=== PATIENT | male | born 1935 | race Caucasian/White ===

== ENCOUNTER 2016-12-20 08:15 | Outpatient (RCR) | payer MEDICARE ==
--- NOTE | 2016-11-29 15:15 | PT/OT/ST INITIAL EVALUATION ---
Department of Health and Human Services Form Approved [facility] Care Financing Administration OMB No. [id number] PLAN OF CARE/ASSESSMENT FOR OUTPATIENT REHABILITATION (Complete for Initial Claims Only) 1. LAST NAME [place] FIRST NAME Roberth MURRAY V 2. ACC # [id number] 3. [facility] [id number] 4. PROVIDER NO. [id number] 5. TYPE: X PT 6. PRIOR THERAPY (Same condition) None 7. PRIMARY DX Lumbar stenosis with neurogenic claudication 8. SECONDARY DX Lower extremity weakness and decreased balance 9. ONSET DATE Several months ago 10. REFERRAL DATE 11/24/2016 11. SOC. DATE/TIME 11/29/2016 @ 08:00 a.m. 12. PRIOR LEVEL OF FUNCTION; PERTINENT HISTORY (Prior therapy results, reason for referral.) S: The patient was referred to physical therapy by Dr. Vivek Sellers with [facility]. The patient's diagnosis was lumbar stenosis with neurogenic claudication. The patient reports that he has been experiencing weakness and decreased strength at his legs for several months. The patient states that he is unable to walk without a cane. The patient notes that he is very unsteady when it is dark out or when the lights are off. He feels very wobbly and unstable on his feet. He notes that his legs get tired quickly. The patient reports that he does not think he can get up from the floor if he had fallen. The patient lives in his own home and still drives. He does undergo dialysis 3 times a week, Monday, Monday, and Monday in [place]. Current pain rating is 0/10. Past medical history includes lumbar stenosis, fusion at his cervical spine one year ago, pacemaker one year ago, peripheral neuropathy right greater than left, bilateral total hip replacement, and bilateral total knee replacement. The patient also has end stage kidney disease. The patient's goal for therapy is to strengthen so he is able to walk better. 13. INITIAL ASSESSMENT/SAFETY PRECAUTIONS/MEDICAL COMPLICATIONS (Level of function at start of care. Be specific, use objective measures, list problems.) O: APPEARANCE: The patient is a 81-year-old male. He ambulates with a small base quad cane. That he states he has been using for approximately 3 months. In walking, the patient demonstrates a left Trendelenburg gait pattern. He demonstrates forward head posture and rounded shoulders. The patient has an ataxic gait pattern when walking. RANGE OF MOTION/FLEXIBILITY: Cervical range of motion normal limits, except for extension which is only 50%. Shoulder range of motion: Right shoulder flexion and abduction limited to 70%. Trunk range of motion: Flexion 60%, extension to neutral, bilateral side bending normal limits. Lower extremity range of motion normal limits. STRENGTH: Right shoulder flexion, abduction, and external rotation were 4-/5 manual muscle test. Left shoulder strength were 5/5 manual muscle test. Lower extremity strength: bilateral hip flexion 4/5 manual muscle test, knee extension and flexion 4+/5 manual muscle test, hip abduction bilaterally 4/5 manual muscle test, and ankle dorsiflexion 4-/5 manual muscle test on the right and 4/5 manual muscle test on the left. FUNCTIONAL ACTIVITIES: The patient is unable to perform a heel raise and has difficulty performing toe raises right greater than left. TINETTI BALANCE ASSESSMENT TOOL: The patient scored a 17/28 which puts him at a high risk for falls. TODAY'S TREATMENT: Included initial evaluation followed by therapeutic exercise for stabilization and strengthening. The patient also performed upper level gait and balance activities. 14. INITIAL POC: (Specify procedures, modalities, short and long-term goals) A: The patient demonstrates lower extremity weakness and decreased balanced and stability. PROGNOSIS: The patient is a good candidate for physical therapy to help improve strength and balance. GOALS: 1. The patient to be compliant with home exercise program in 2 weeks. 2. The patient to demonstrate half a muscle grade improvement in lower extremity strength in 4 weeks. 3. The patient to demonstrate a 5 point improvement in Tinetti balance assessment score in 6 weeks. 4. The patient to report that he feels safer when walking and performing activities at home in 6 weeks. PLAN: The patient will be seen 2 times a week over the next 6 weeks. Plan on progressing patient with general strengthening, stabilization, and balance activities. Treatment may also gentle pelvic traction and ultrasound. 15. FUNCTIONAL LEVEL (End of claim period) 16. PHYSICIAN SIGNATURE ? ON FILE OR ENTER HERE: 17. DATE: I certify the need for these services furnished under this plan of care and if for partial hospitalization. 18. CERTIFICATION FROM THROUGH FORM [id number]
[~2016-12-20 08:15] MED LIST: ASPI-586 PO; DLT240CCR PO; INSU100V32 SQ; LISI1TAB8 PO; [UNRECOGNIZED DRUG - CODE] PO
== END 2017-01-31 12:31 | disposition home or self-care (01) ==
LOC: PT 08:15
PROVIDERS: ATTEND Neurological Surgery
DX: M48.06 Spinal stenosis, lumbar region (principal); I73.9 Peripheral vascular disease, unspecified; R29.818 Other symptoms and signs involving the nervous system
CPT/HCPCS: 97110; 97112; 97161; G8978; G8979